=== PATIENT | male | born 1940 | race Caucasian/White ===

== ENCOUNTER 2018-12-12 02:44 | Day surgery (SDC) | payer MEDICARE, OTHER ==
[~2018-12-12] VITALS: Ht 190.5 cm; Wt 88.0 kg
[~2018-12-12 02:44] MED LIST: ASPI325 PO; ASPI81CH PO; CHOL10002 PO; ESTER-C 1,0001 EACH PO; FISH1000 PO; LISHYD1012 PO; METO25ER PO; SUPPLEMENTS; Saw Palmetto80 MG PO; VITAMIN B-625 MG PO; [UNRECOGNIZED DRUG - OTHER] MC
--- NOTE | 2018-12-12 08:30 | NUR ---
PT VERBALIZED UNDERSTANDING OF D/C INSTRUCTIONS. PAPERWORK PROVIDED IN [facility]. PRESSURE DRESSING REMOVED FROM LEFT ANTERIOR CHEST WALL. STERI STRIPS AND TEGADERM INTACT TO INCISION SITE. MINIMAL BLOOD NOTED TO DRESSING. NO ACTIVE BLEEDING, OOZING, OR PAIN NOTED. IV REMOVED FROM LAC WITH CATH INTACT, PRESSURE DRESSING APPLIED. PT GETS DRESSED WITH ASSISTANCE FROM HIS . VSS. TO DRIVE PT HOME. PT AMBULATES TO RESTROOM WITH STEADY GAIT. UNMEASURED VOID. DENIES NEED FOR W/C OUT TO PRIVATE VEHICLE. NADN AT TIME OF DISPO. PT ENCOURAGED TO FOLLOW UP FOR WOUND CARE APT SCHEDULED.
== END 2018-12-12 08:30 | disposition home or self-care (01) ==
LOC: MHTC 02:44
PROC: 0JPT02Z Removal of Monitoring Device from Trunk Subcutaneous Tissue and Fascia, Open Approach (ICD-10-PCS; principal; 2018-12-12)
DX: Z45.018 Encounter for adjustment and management of other part of cardiac pacemaker (principal); I10 Essential (primary) hypertension; I25.10 Atherosclerotic heart disease of native coronary artery without angina pectoris; I48.0 Paroxysmal atrial fibrillation; H53.129 Transient visual loss, unspecified eye; I65.29 Occlusion and stenosis of unspecified carotid artery; Z79.82 Long term (current) use of aspirin; Z86.73 Personal history of transient ischemic attack (TIA), and cerebral infarction without residual deficits; Z79.899 Other long term (current) drug therapy; Z88.8 Allergy status to other drugs, medicaments and biological substances; Z88.0 Allergy status to penicillin; Z88.2 Allergy status to sulfonamides; Z87.891 Personal history of nicotine dependence
CPT/HCPCS: 33286; 99152; J2250; J3010

== ENCOUNTER 2022-11-13 07:42 | Day surgery (SDC) | payer OTHER ==
[~2022-11-13] VITALS: Ht 190.5 cm; Wt 87.3 kg
[~2022-11-13 07:42] MED LIST changes: -CHOL10002 PO; +ESTER C PO; +FISH OIL 1,2001 EAC7 PO; -FISH1000 PO; +LATA.005SO BOTHEYES; +Lisinopril-Hct1 EAC4 PO; +Lisinopril2.5 MG PO; +OMEGA 3 PO; +TURMERIC500 M2 PO; +VITAMIN B125000 MC1 PO; +VITAMIN D310 MC4 PO; +[UNRECOGNIZED DRUG - OTHER] PO
--- NOTE | 2022-11-13 18:26 | NUR ---
SHIFT SUMMARY PT S/P FOR L TOTAL HIP. PT HAD A SPINAL WHICH HAS SINCE WORN UP. PT UP TO A CHAIR AND TOLERATING PO INTAKE WELL. PT HAS YET TO VOID BUT WILL TRY TO GO AGAIN AFTER EATING DINNER. VSS.
[2022-11-14 05:10] LABS: BASOPHILS ABSOLUTE AUTO 0.03 K/mm3 (0.00-0.23); BASOPHILS PERCENT AUTO 0 % (0-2); EOSINOPHILS ABSOLUTE AUTO 0.01 K/mm3 (0.00-0.68); EOSINOPHILS PERCENT AUTO 0 % (0-6); Hematocrit 32.3 % (37.0-53.0); Hemoglobin 11.3 g/dL (13.5-17.5); IMMATURE GRAN ABSOLUTE AUTO 0.08 K/mm3 (0.00-0.10); IMMATURE GRAN PERCENT AUTO 1 % (0-1); LYMPHOCYTES ABSOLUTE AUTO 1.73 K/mm3 (0.84-5.20); LYMPHOCYTES PERCENT AUTO 11 % (21-46); MONOCYTES PERCENT AUTO 9 % (4-13); Mean Corpuscular HGB 31.8 pg (26.0-34.0); Mean Corpuscular Volume 91 fL (80-100); Mean Platelet Volume 10.5 fL (9.1-12.4); NEUTROPHILS ABSOLUTE AUTO 13.02 K/mm3 (1.96-9.15); NEUTROPHILS PERCENT AUTO 79 % (41-73); Platelet Count 228 K/mm3 (150-400); RDW Standard Deviation 40.4 fL (35.1-46.3); Red Blood Cell Count 3.55 M/mm3 (4.30-5.90); White Blood Cell Count 16.37 K/mm3 (4.00-11.30)
[2022-11-14 05:38] LABS: Bun/Creatinine Ratio 22.9 (12.0-20.0); Calcium, Blood 8.6 mg/dL (8.5-10.1); Creatinine, Blood 0.92 mg/dL (0.60-1.20); Potassium, Blood 4.1 mmol/L (3.5-5.5)
--- NOTE | 2022-11-14 06:27 | NUR ---
SHIFT SUMMARY PT POD 0 LEFT TOTAL HIP. HE HAS DONE WELL OVERNIGHT, PAIN HAS BEEN MINIMAL AND WELL CONTROLLED WITH SCHEDULED TORADOL AND TYLENOL. HE IS MOTIVATED AND HAS BEEN EAGER TO AMBULATE THE HALLS WITH THE FWW. HE IS TOLERATING AMBULATION WITHOUT DIFFICULTY. DRESSING INTACT TO LEFT HIP. PT DENIES N/T IN EXT AND IS ABLE TO WIGGLE TOES. PT SOMEWHAT ANXIOUS AND HAS BEEN AWAKE A GOOD PORTION OF THE NIGHT. PT IS NOW SLEEPING AT THE TIME OF THIS NOTE. PT A/OX4, PLESANT AND COOPERATIVE WITH CARE. POST OP VITALS STABLE. BED IN LOWEST POSITION, CALL LIGHT WITHIN REACH.
[2022-11-14] MEDS ORDERED: Percocet 5-3251 EACH PO (09:23)
--- NOTE | 2022-11-14 13:17 | NUR ---
DISCHARGE SUMMARY PT POD #1 FOR L TOTAL HIP. AQUACEL DRESSING IN PLACE AND CDI. SOME SWELLING NOTED AT THE INCISION SITE. PT WORKED WELL WITH PHYSICAL THERAPY AND WAS CLEARED TO GO HOME. NO C/O PAIN THIS SHIFT. PT DC'D HOME WITH .
== END 2022-11-14 12:43 | disposition home or self-care (01) ==
LOC: ORSCMMR 07:42 → ORD 09:15 → ORSCMMR 09:15 → ORD 10:15 → ORSCMMR 13:09 → SURS 14:37 → ORSCMMR 11-14 12:43
PROVIDERS: Orthopaedic Surgery
PROC: 0SRB0JZ Replacement of Left Hip Joint with Synthetic Substitute, Open Approach (ICD-10-PCS; principal; 2022-11-13 09:15)
DX: M16.12 Unilateral primary osteoarthritis, left hip (principal); I10 Essential (primary) hypertension; I25.10 Atherosclerotic heart disease of native coronary artery without angina pectoris; I48.91 Unspecified atrial fibrillation; K21.9 Gastro-esophageal reflux disease without esophagitis; G62.9 Polyneuropathy, unspecified; Z79.899 Other long term (current) drug therapy
CPT/HCPCS: 27130; 0055T; 36415; 72170; 80048; 85025; 97110; 97116; 97161; A9270; C1776; J0171; J0690; J0735; J1100; J1885; J2250; J2370; J2704; J2795; J3010; J7120

== ENCOUNTER 2023-11-07 08:11 | Day surgery (SDC) | payer OTHER ==
[~2023-11-07] VITALS: Ht 188 cm; Wt 85.6 kg
[~2023-11-07 08:11] MED LIST changes: +ADVANCED ESTER C PO; +ASPIR 8181 M1 PO; +PROSTATE HEALTH PO; +Percocet 5-3251 EACH PO; +[UNRECOGNIZED DRUG - OTHER] PO
[2023-11-07] MEDS ORDERED: LISI5 (09:00)
--- NOTE | 2023-11-07 09:09 | NUR ---
11/07/23 0909 Eboni Covington PROPARACAINE PLACED IN RIGHT EYE AT 0853 PLEDGET PLACED IN RIGHT EYE AT 0855. PT TOLERATED WELL.
[2023-11-07 09:58] VITALS: BP 133/88
--- NOTE | 2023-11-07 12:39 | NUR ---
11/07/23 1239 Vincent Trejo IV REMOVED INTACT. SITE WNL. PT ADVISED TO MONITOR B/P AT HOME AND FOLLOW UP WITH PCP.
== END 2023-11-07 10:21 | disposition home or self-care (01) ==
LOC: ORSCSDS 08:11
PROVIDERS: Ophthalmology
PROC: 08RJ3JZ Replacement of Right Lens with Synthetic Substitute, Percutaneous Approach (ICD-10-PCS; principal; 2023-11-07 09:30)
DX: H25.13 Age-related nuclear cataract, bilateral (principal); H52.201 Unspecified astigmatism, right eye; I10 Essential (primary) hypertension; K21.9 Gastro-esophageal reflux disease without esophagitis; I48.91 Unspecified atrial fibrillation; Z79.82 Long term (current) use of aspirin; Z79.899 Other long term (current) drug therapy
CPT/HCPCS: J2001; J2250; J3010; J3301; J7040; V2632

== ENCOUNTER 2023-11-14 08:39 | Day surgery (SDC) | payer OTHER ==
[~2023-11-14] VITALS: Ht 188 cm; Wt 86.1 kg
[~2023-11-14 08:39] MED LIST changes: +LISI5
--- NOTE | 2023-11-14 09:05 | NUR ---
11/14/23 0905 ROXANN MANZANO T:[id number] P:[id number]
[2023-11-14 10:18] VITALS: BP 145/86
== END 2023-11-14 10:33 | disposition home or self-care (01) ==
LOC: ORSCSDS 08:39
PROVIDERS: Ophthalmology
PROC: 08RK3JZ Replacement of Left Lens with Synthetic Substitute, Percutaneous Approach (ICD-10-PCS; principal; 2023-11-14 10:00)
DX: H25.12 Age-related nuclear cataract, left eye (principal); H52.202 Unspecified astigmatism, left eye; Z96.1 Presence of intraocular lens; K21.9 Gastro-esophageal reflux disease without esophagitis; I10 Essential (primary) hypertension; I48.91 Unspecified atrial fibrillation; Z79.82 Long term (current) use of aspirin; Z79.899 Other long term (current) drug therapy
CPT/HCPCS: J2250; J3010; J3301; J7040; V2632